=== PATIENT | male | born 2000 | race Caucasian/White ===

== ENCOUNTER 2022-12-28 07:25 | Emergency (ER) | payer BC ==
[2022-12-28] MEDS ORDERED: Sodium Chloride 0.9% 10 ML Syringe FLUSH PRN (07:52)
[2022-12-28] MEDS ORDERED: methylPREDNISolone Sodium Succinate 125 MG/2 ML SDV IVPUSH ONE (07:54)
[2022-12-28] MEDS ORDERED: Ketorolac 30 MG/ML SDV IVPUSH ONE (07:55)
[2022-12-28] MEDS ORDERED: Sodium Chloride 0.9% 1,000 ML IV SCH (08:00)
[2022-12-28 08:42] LABS: BASOPHILS ABSOLUTE AUTO 0.03 K/mm3 (0.01-0.08); BASOPHILS PERCENT AUTO 0.3 % (0.1-1.2); EOSINOPHILS PERCENT AUTO 0 (0.8-7.0); HEMATOCRIT 41.3 % (40.1-51.0); HEMOGLOBIN 14.3 gm/dl (13.7-17.5); IMMATURE GRAN ABSOLUTE AUTO 0.02 K/mm3 (0.00-0.10); IMMATURE GRAN PERCENT AUTO 0.2 % (<=1.0); LYMPHOCYTES ABSOLUTE AUTO 0.83 K/mm3 (1.32-3.57); LYMPHOCYTES PERCENT AUTO 7.7 % (21.8-53.1); MEAN CORPUSCULAR HEMOGLOBIN 29.2 pg (25.7-32.2); MEAN CORPUSCULAR HGB CONC 34.6 g/dl (32.2-35.5); MEAN CORPUSCULAR VOLUME 84.3 fl (79.0-92.2); MEAN PLATELET VOLUME 9.7 fl (9.4-12.3); MONOCYTES ABSOLUTE AUTO 1.33 K/mm3 (0.30-0.82); MONOCYTES PERCENT AUTO 12.4 % (5.3-12.2); NEUTROPHILS ABSOLUTE AUTO 8.53 K/mm3 (1.78-5.38); NEUTROPHILS PERCENT AUTO 79.4 % (34.0-67.9); PLATELET COUNT,PLT 256 K/mm3 (163-337); WHITE BLOOD CELL COUNT,WBC 10.74 K/mm3 (4.23-9.07)
[2022-12-28] MEDS ORDERED: Iopamidol 612 MG/ML 100 ML Bottle IVPUSH ONE (08:45)
[2022-12-28 08:57] LABS: CORONAVIRUS COVID-19 NAA NEGATIVE (NEGATIVE); INFLUENZA A NAA NEGATIVE (NEGATIVE); RESPIRATORY SYNCYTIAL VIR NAA NEGATIVE (NEGATIVE)
[2022-12-28 09:00] LABS: A/G RATIO 0.8 (1-2); ALBUMIN 3.5 g/dl (3.4-5.0); ANION GAP 17.9 (5-15); BILIRUBIN TOTAL 0.7 mg/dL (0.2-1.0); BUN/CREATININE RATIO 11.3 (14-18); CALCIUM 8.9 mg/dL (8.5-10.1); CREATININE 0.8 mg/dL (0.7-1.3); EST CRCL DRUG DOSING (CG) 148.28 mL/min; POTASSIUM,K 3.9 mEq/L (3.5-5.1); PROTEIN TOTAL,TP 7.8 g/dl (6.4-8.2)
[2022-12-28 09:10] LABS: C-REACTIVE PROTEIN 18.2 mg/dL (<1.0)
[2022-12-28 09:21] LABS: SLIDE REVIEW ABNORMAL SMEAR
[2022-12-28] MEDS ORDERED: cefTRIAXone 1 GM in Sodium Chloride 0.9% 100 ML IV ONE (09:31)
== END 2022-12-28 10:34 | disposition home or self-care (01) ==
LOC: JD.ED 07:25
DX: J03.90 Acute tonsillitis, unspecified (principal); B96.89 Other specified bacterial agents as the cause of diseases classified elsewhere; H66.013 Acute suppurative otitis media with spontaneous rupture of ear drum, bilateral; Z20.822 Contact with and (suspected) exposure to COVID-19
CPT/HCPCS: 0241U; 36415; 70491; 80053; 85025; 86140; 86308; 87651; 96361; 96365; 96375; 99283; J0696; J1885; J2930; J3490; J7030; Q9967; 99284